=== PATIENT | male | born 1955 | race Caucasian/White ===

== ENCOUNTER 2024-10-15 13:56 | Inpatient (IN) | payer OTHER, MEDICARE ==
[~2024-10-15] VITALS: Ht 170.2 cm; Wt 59.5 kg
[2024-10-15] VITALS (19 sets, daily range): BP systolic 100–147; BP diastolic 48–89; PULSE 68–115; RESP 12–20; TEMP 97.6–99.1; O2SAT 95–98
--- NOTE | 2024-10-15 14:00 | ELECTROCARDIOGRAPH REPORT ---
[facility] Test Date: 2024-10-15 Test Time: 13:58:53 Pat Name: STEVE ROBERTSON Department: EMERGENCY ROOM Room: [place] [address] Gender: M Stepdown Nurse: remberto : 1955 Requested By: CAROL YI Order Number: [id number] Reading MD: Dr. Carol Yi Measurements Intervals [place] Rate: 106 P: 148 [place]: 178 QRS: 65 QRSD: 83 T: 42 QT: 360 QTc: 479 Interpretive Statements Sinus tachycardia with irregular rate Borderline prolonged QT interval Electronically Signed On 10-15-2024 17:54:[address] Carol Yi Please click the below link to view image of tracing.
[2024-10-15] MEDS ORDERED: heparin 25,000 UNIT/250ml bag 250 ML IV PRN (14:05)
--- NOTE | 2024-10-15 14:17 | Physician Documentation ---
History of Present Illness ~ Chief Complaint: ALOC Stated Complaint: SEE CHIEF COMPLAINT Time Seen by MD: 14:15 OK to notify your PCP?: Yes Source: patient, RN/MD, EMS, RN notes reviewed, EMS notes reviewed, old records Mode of Arrival: EMS Exam Limitations: no limitations HPI This patient was recently diagnosed with pneumonia on the left side given antibiotics and apparently returned to the ER once again with worsening symptoms. He has pneumonia once again he was satting at 87% on room air when he arrived. Septic workup was started. During the workup he was found to have an elevated troponin of 0.44 afterwards increased to 1.08. He was started on a heparin drip. In addition to that he was found down CPKs were obtained and were stable at 129. His potassium was low at 3.1 and magnesium 1.5. Kidney functions were reassuring with a BUN of 32 and a creatinine of 0.98. Patient received 3 L of fluids he was hypotensive at 92/54 just prior to discharge with a rapid heart rate at 100. Patient was described as encephalopathic. Just prior to transfer the patient was given vancomycin cefepime and Zithromax. Additionally the patient arrived with a fever of 40 C he is afebrile at time of transfer. Patient's initial heart rate was as high as 160 with rapid AFib with RVR. His hemoglobin is 7.5. WBC is 7.0 patient has multiple cardiac risk factors had a cardiac catheterization two years ago which was reassuring. He was then sent to the ER for sepsis at our facilities. Patient also arrives normotensive opening his eyes and alert Past medical history pulmonary hypertension pneumonia, peripheral neuropathy, osteoarthritis Surgical history negative Social history alcohol in the past more than 30 years beer former smoker quit more than 30 days ago Medication Reconciliation Allergies: Coded Allergies: Penicillins (Verified Allergy, Severe, 10/15/24) acetaminophen (Verified Allergy, Severe, 10/15/24) dicyclomine (Verified Allergy, Severe, 10/15/24) hydrocodone (Verified Allergy, Severe, 10/15/24) morphine (Verified Allergy, Unknown, 10/15/24) Past Medical History Smoking Status: Former smoker Review of Systems ROS Unable to evaluate due to health clinical status Physical Exam Vital Signs: RN Vital Signs have been reviewed: Yes, Temperature: 98.2, Source: Axillary, Heart Rate: 92, Respiratory Rate: 16, BP: 118/56, Pulse Oximetry: 96, Weight: 58.600 Oxygen Flow Rate: 0 Physical Exam General: The patient is thin frail poorly nourished, ill appearing and is in mild acute distress. Skin: [place], warm and dry with no rashes. HEENT: Head was normocephalic and atraumatic. Eyes - pupils equal, round, reactive to light and accommodation. Extraocular movements were intact. Conjunctivae were nonicteric. The mouth and oropharynx with dry mucous membranes. There were no pharyngeal exudates or erythema. Neck: Supple and nontender. There was no jugular venous distention, lymphadenopathy, thyromegaly or masses. Chest: Diffuse rhonchi no wheezes, decreased breath sounds poor air movement. Slightly decreased at the left base. Crackles bilaterally at base Heart: Rate IRregular and rhythmic. S1, S2. No murmurs. Palpation of the chest wall was normal. No rubs or thrills. Abdomen: Soft, nontender and nondistended. Positive bowel sounds. No guarding or rebound. Extremities: No cyanosis, clubbing or edema. The patient moves all extremi ties. Pulses were equal and symmetric. Neurologic: Motor sensory grossly intact Psychologic: The patient was oriented to person, place and time. The patient demonstrated appropriate judgement and insight. Progress Results/Orders Reviewed/noted all lab results: Yes Results/Orders Orders - PRSAAD YI MD Chest,Single View (10/15/24 13:58) Monitor (10/15/24 13:58) Saline Lock (10/15/24 13:58) Oxygen (10/15/24 13:58) Electrocardiogram (10/15/24 13:58) Heparin 10,000 Unit/Ml 1ml (Heparin 10,0 (10/15/24 14:05) Cbc/Diff (10/16/24 03:00) Cbc/Diff (10/17/24 03:00) Cbc/Diff (10/18/24 03:00) Cbc/Diff (10/19/24 03:00) Cbc/Diff (10/20/24 03:00) Amiodarone/D5 360mg/200ml Bag (Nexterone (10/15/24 14:10) Type And Screen (10/15/24 14:26) Lrpc - Active Bleeding (10/15/24 14:26) Completed Orders - PRASAD YI MD Chest,Single View (10/15/24 13:58) Cbc/Diff (10/15/24 13:58) Electrocardiogram (10/15/24 13:58) Hs Troponin I W Calculations (10/15/24 15:58) Hs Troponin I W Calculations (10/15/24 16:58) Heparin 25,000 Unit/250ml Bag (Heparin 2 (10/15/24 14:05) Medications Received in ER Medications (Trade) Dose Ordered Sig/Jacqueline Route PRN Reason Start Time Stop Time Status Last Admin Dose Admin (heparin 10,000 unit/ml 1ml inj) bolus for correct... PRN PRN IV per protocol-CARDIAC 10/15/24 14:05 10/15/24 17:28 2,300 UNITS Amiodarone HCL/ Dextrose 200 ml @ 16.667 mls/ hr Q12H ONCE IV 10/15/24 14:10 10/16/24 02:09 10/15/24 14:23 16.667 MLS/HR Vital Signs 10/15/24 10/15/24 10/15/24 14:00 14:24 14:24 Temp 98.2 Pulse 92 Resp 16 14 B/P (MAP) 118/56 Pulse Ox 96 94 O2 Delivery Room Air* O2 Flow Rate 0 0 FiO2 21 Laboratory Tests Test 10/15/24 14:09 White Blood Count 15.7 H Red Blood Count 2.51 L Hemoglobin 7.1 L Hematocrit 22.0 *L Mean Corpuscular Volume 87.7 Mean Corpuscular Hemoglobin 28.2 Mean Corpuscular Hemoglobin Concent 32.1 L Red Cell Distribution Width 15.7 H Platelet Count 188 Mean Platelet Volume 10.6 H Neutrophils (%) (Auto) 86.9 H Lymphocytes (%) (Auto) 7.3 L Monocytes (%) (Auto) 5.7 Eosinophils (%) (Auto) 0 Basophils (%) (Auto) 0.1 Neutrophils # (Auto) 13.6 H Lymphocytes # (Auto) 1.1 Monocytes # (Auto) 0.9 Eosinophils # (Auto) 0.0 Basophils # (Auto) 0.0 CBC Comment Coagulation Comments Chemistry Comments Re-Evaluation Re-Evaluation : Re-Evaluation: Improved Progress This patient was transferred from [facility] for sepsis. Patient was hypotensive received 3 L of fluids but now is doing much better upon arrival. Patient does not receive or need any pressors at this time. Patient's initial laboratory work showed a leukocytosis of 15.7 and a left shift of 86 consistent with an infectious etiology. Sed rate is 30 C-reactive protein is 8.91 lactic acid ho wever is 1.1 however the patient has also showing significant signs of anemia with a hemoglobin of 7 hematocrit of 22. Due to the signs and symptoms of sepsis with elevated troponins and ischemic cardiomyopathy patient was given a unit of blood to help with his cardiac output and oxygenation. Repeat EKG shows an improved hematocrit of 23.3. Chemistry shows normal chemistry however initial troponin is 851 subsequent was 809 in the 3rd is 774. Procalcitonin later was obtained and is 41.16. Patient was already resuscitated at [facility]. Patient was then admitted to the hospitalist service for further workup and care. 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 Pulse oximetry monitor interpretation shows normal oxygenation 99% room air, normal, my interpretation. EKG/XRAY/CT/US/VASC/MRI Chest X-Ray : Additional Comments [facility] Test Date: 2024-10-15 Test Time: 13:58:53 Pat Name: STEVE ROBERTSON Department: EMERGENCY ROOM Room: [place] [address] Gender: M History Professor: remberto : 1955 Requested By: PRASAD YI Order Number: [id number] Reading MD: Dr. Prasad Yi Measurements Intervals [place] Rate: 106 P: 148 [place]: 178 QRS: 65 QRSD: 83 T: 42 QT: 360 QTc: 479 Interpretive Statements Sinus tachycardia with irregular rate Borderline prolonged QT interval Electronically Signed On 10-15-2024 17:54:[address] Prasad Yi Please click the below link to view image of tracing. Abdominal X-Ray : Additional Comment CHEST RADIOGRAPH Indication: CP Technique: Single frontal view of the chest was obtained COMPARISON: None FINDINGS: Lines and Tubes: None Lungs: Retrocardiac opacity may reflect atelectasis or mild pneumonia. Pleura: No effusion. No pneumothorax. Cardiomediastinal contours: Unremarkable Bones: Unremarkable IMPRESSION: 1. Retrocardiac opacity may reflect atelectasis or mild pneumonia. Heart Score: Heart Score Response (Comments) Value History Slightly Suspicious 0 EKG Repolarization Disturb 1 Age >65 2 Risk Factors 1 or 2 risk factors 1 Troponin >3 x's Normal limit 2 Total 6 Medical Decision Making Additional info obtained from: old records Differential Dx:Considerations: Include: dehydration, DKA, encephalopathy, hypercalcemia, hypoglycemia, hypernatremia, hyponatremia, hypoxia, CVA, mass lesion, subarachnoid hemorrhage, drug overdose, encephalopathy, ETOH intoxication, medication toxicity, infection - sepsis, infection - UTI, renal failure, hyperthermia, hypothermia, other Departure Disposition: LEFT AWOL/ELOPED Admitted to Inpatient Unit: yes, to hospitalist Admission Level of Care: PCU with Tele Impression: Primary Impression: Altered mental status Qualified Codes: R41.0 - Disorientation, unspecified Additional Impressions: Left lower lobe pneumonia Qualified Codes: J18.9 - Pneumonia, unspecified organism Symptomatic anemia Sepsis Qualified Codes: A41.9 - Sepsis, unspecified organism Atrial fibrillation with rapid ventricular response Non-ST elevation myocardial infarction (NSTEMI) Condition: Critical Referrals: NO PRIMARY CARE PROVIDER (PCP) Education Educated: Patient Critical Care Note Total Time (mins): 33 Critical Care Note The very real possibility of a deterioration of this patient's condition required the highest level of my preparedness for sudden, emergent intervention. I provided critical care services, which included medication orders, frequent reevaluations of the patient's condition and response to treatment, ordering and reviewing test results, and discussing the case with various consultants. Excludes time spent performing separately billable procedures. The critical care time associated with the care of the patient was. 33 minutes Signature Scribe Signature: . Attestation: The note accurately reflects work and decisions made by me.Prasad Yi MD 10/15/24 14:40 PRASAD YI MD Oct 15, 2024 14:17
[2024-10-15 14:23] LABS: MEAN PLATELET VOLUME 10.6 FL (7.4-10.4); RED CELL DISTRIBUTION WIDTH 15.7 % (11.5-14.5)
[2024-10-15] MEDS: amiodarone/D5 360MG/200ML BAG 200 ML IV ONE (14:23)
[2024-10-15] MEDS ORDERED: magnesium hydroxide 30ml (MOM) UD suspension PO PRN (14:35)
[2024-10-15] MEDS ORDERED: mag hydrox/Alum hydrox/simeth 30ml oral suspension PO PRN (14:35)
[2024-10-15] MEDS ORDERED: magnesium sulf-water 2g/50mL 50 ML IV PRN (14:35)
[2024-10-15] MEDS ORDERED: ondansetron/PF 4mg/2ml inj IV PRN (14:35)
[2024-10-15] MEDS ORDERED: potassium Cl 20 mEq SR tablet PO PRN ×2 (14:35)
[2024-10-15] MEDS ORDERED: magnesium Cl slow-release 64mg tablet PO PRN (14:35)
[2024-10-15] MEDS ORDERED: magnesium sulf-water 4G/100mL 100 ML IV PRN (14:35)
[2024-10-15] MEDS: MESSAGE TO NURSING IV ONE ×2 (14:55→17:27)
[2024-10-15 15:05] LABS: MEAN PLATELET VOLUME 10.6 FL (7.4-10.4); RED CELL DISTRIBUTION WIDTH 15.9 % (11.5-14.5)
--- NOTE | 2024-10-15 15:09 | RADIOLOGY REPORT ---
CHEST RADIOGRAPH Indication: CP Technique: Single frontal view of the chest was obtained COMPARISON: None FINDINGS: Lines and Tubes: None Lungs: Retrocardiac opacity may reflect atelectasis or mild pneumonia. Pleura: No effusion. No pneumothorax. Cardiomediastinal contours: Unremarkable Bones: Unremarkable IMPRESSION: 1. Retrocardiac opacity may reflect atelectasis or mild pneumonia.
[2024-10-15 15:17] LABS: INR 1.4 INR
[2024-10-15 15:18] LABS: CREATININE 0.95 MG/DL (0.60-1.10); TOTAL CARBON DIOXIDE 19.7 MMOL/L (24-32); eCRCL 62 ML/MIN; eGFR 79 ML/MIN
[2024-10-15 15:25] LABS: PRO BRAIN NATRIURETIC PEPTIDE 8826 PG/ML (0-125)
--- NOTE | 2024-10-15 16:55 | HISTORY AND PHYSICAL-Residence ---
History & Physical Providers to CC Resident Creating Document: FATMATA SOLER, RES ~ History of Present Illness Reason for Admit\Complaint: Altered mental status History of Present Illness 70 years old with past medical history of HTN,Lumbar Radiculopathy presents to ED with Altered level of Consciousness he was refered from [facility] according to her patient Found Crawling in the bathroom an dcould not get up. he had fever and confused also vomited which was white color. He was recently dignosed with pneumonia and finished course of Antibiotics. patient is oriented to person and place but unable to tell time and date.Patient mentioned having Stabing chest pain of which is non radiating and constant and he also report SOB. We contacted His she mentioned he was in normal mentation few weeks before he fell and on the day of fall patient vomited which is non bloody white, patient doesnt have any bleeding disorders or on Blood thinners confirmed by her . patient was having Afib with RVR before coming to ED and was on Amiodarone, now he is heart rate is 94-102. Overall patient is a poor historian Allergies: Coded Allergies: Penicillins (Verified Allergy, Severe, 10/15/24) acetaminophen (Verified Allergy, Severe, 10/15/24) dicyclomine (Verified Allergy, Severe, 10/15/24) hydrocodone (Verified Allergy, Severe, 10/15/24) morphine (Verified Allergy, Unknown, 10/15/24) Past Medical History Past Medical History Hypertension Lumbosacral radiculopathy Past Surgical History Surgical History Comment Cholecystectomy Past Social History Smoking: Non-Smoker Alcohol Use: None Drug Use: None Lives with: Spouse Lives In: Home Occupation: disabled ROS Constitutional: Reports: no symptoms reported Eyes: Reports: no symptoms reported ENT: Reports: no symptoms reported Respiratory: Reports: shortness of breath Cardiovascular: Reports: irregular heart rate Gastrointestinal: Reports: abdominal pain Genitourinary: Reports: no symptoms reported Male Genitalia: Reports: no symptoms reported Neurological: Reports: no symptoms reported Musculoskeletal: Reports: no symptoms reported, back pain Integumentary: Reports: no symptoms reported Allergic/Immunologic: Reports: no symptoms reported Hematologic/Lymphatic: Reports: no symptoms reported Endocrine: Reports: no symptoms reported Psychiatric: Reports: no symptoms reported Unable to obtain: altered mental status Exam Vitals: Vital Signs Date Time Temp Pulse Resp B/P (MAP) Pulse Ox O2 Delivery O2 Flow Rate FiO2 10/15/24 16:07 97.8 78 16 105/53 10/15/24 14:24 94 Room Air* 0 21 General: Patient is Oriented to person and place but not to time and situation, overall patient is a poor historian but trying to answer questions, not agitated HEENT: normocephalic, atraumatic ,dry mucus membranes, pallor is present Neck: no nodules, no jvd, no thyromegalay, no lymphadenopathy Chest: Normal breath sounds, crackles heard b/l, no rochi Cardiovascular: irregular and tachycardic, no rubs or extra heart sounds heard Abdomen: soft, tender,no gaurding, and normal bowel sounds are heard Extremities: no cyanosis, no clubbing Central Nervous System: sleepy and he responded when i call by his name. he able to move all extremities. Skin: warm and dry Diagnostic Data Last Recorded Lab Results: 10/15/24 1456 10/15/24 1456 Diagnostic Data: Laboratory Tests Test 10/15/24 14:56 Prothrombin Time 13.5 SECONDS (9.0-12.0) H INR International Normalized Ratio 1.4 INR APTT (Heparin Protocol) 31 SECONDS (45-60) L Additional Plan 70 years old with past medical history of HTN and radiculopathy is currently evaluated for NSTEMI, Community acquired pneumonia, Atrial fibrillation with RVR, Normocytic anemia Chest pain likely due to NSTEMI Troponins - 851 - 774 (trending down) pending Echo Patient fail to clear swallow test plan: Started metaprolol 5mg IV once heparin drip Pneumonia Possible Hospital acquired bacteria covering gram positive and gram negative Previous CT Shows : Multifocal pneumonia, worst in the lower lung maloney and particularly the left lower lobe and reactive mediastinal and hilar adenopathy Chest xray : Retrocardiac opacity may reflect atelectasis or mild pneumonia ESR : 30 , ProCa.16 , CRP - 8.91 Plan: Blood cultures and sensitivity ordered Started Azithromycin 500mg/250 ml Q24H IV Started Ceftriaxone 1g IV Daily Started Vancomycin 1 gm Q 12 H StartedCefepime 2gm IV Q12 Duonebs PRN Q4H Atrial fibrillation with RVR CHADsVASc Score : 1 EKG: Sinus tachy cardia with irregular rate Plan: amiodarone 360 mg/200 ml q12h once IV current heart rate is 80-90 Started Metaprolol 5g IV once Currenlty on Heparin Drip Severe Normocytic anemia likely due to Lower GI , Upper GI bleeding possible peptic ulcer disease Hb:7.1-7.4, Hct: 22- 23.3, MCV- 88.8 Iron : 12, TIBC: 146, Ferritin :417 Plan: Iron studies ordered Stool occult blood ordered Started Protonix 40mg IV q12h started PRBC transfusion Code Status: full DVT PPX: heparin Line/tube: Peripheral GI prophylaxis: Protonix Disposition: We will continue monitor patient in PCU with telemetry 24 hours Date of Service: Oct 15, 2024 Billing Provider: LUL PURCELL MD Common Visit Codes: 41822-[id number] INP/OBS CARE (HIGH) Secondary Visit Codes: [id number] CARE PLAN 30 MINUTES FATMATA SOLER, BETTYE Oct 15, 2024 16:55 LUL PURCELL MD Oct 18, 2024 07:11
[2024-10-15] MEDS: metoprolol tartrate 1mg/ml inj IV ONE (17:10)
[2024-10-15] MEDS: CefTRIAXone/D5W-Rocephin 1gm 50 ML IV SCH (17:10)
[2024-10-15] MEDS: heparin 10,000 units/1 ML INJ IV PRN (17:28)
[2024-10-15] MEDS: heparin 25,000 UNIT/250ml bag 250 ML IV PRN (17:29)
[2024-10-15] MEDS ORDERED: ipratropium/albuterol 3ml nebule NEB PRN (17:35)
[2024-10-15] MEDS: azithromycin/NS 500mg/250ml 250 ML IV SCH (17:52)
[2024-10-15 17:59] LABS: % IRON SATURATION 8 % (11-46)
[2024-10-15] MEDS ORDERED: docusate sod 100mg capsule PO SCH (20:00)
[2024-10-15] MEDS: K and/or MAG REPLACEMENT MC SCH (20:00)
[2024-10-15] MEDS ORDERED: vancomycin/NS 1 GM ADD-VANTAGE 250 ML IV SCH (21:11)
[2024-10-15] MEDS: CEFEPIME 2gm in D5W 50mL 50 ML IV SCH (23:46)
[2024-10-16] VITALS (20 sets, daily range): BP systolic 117–164; BP diastolic 47–94; PULSE 73–104; RESP 15–30; TEMP 97.3–98.9; O2SAT 94–99
[2024-10-16] MEDS: MESSAGE TO NURSING IV ONE ×2 (00:05→08:24)
[2024-10-16] MEDS: amiodarone/D5 360MG/200ML BAG 200 ML IV SCH (00:08)
[2024-10-16] MEDS: vancomycin/NS 1 GM ADD-VANTAGE 250 ML IV SCH (00:46)
[2024-10-16 06:21] LABS: MEAN PLATELET VOLUME 11.0 FL (7.4-10.4); RED CELL DISTRIBUTION WIDTH 15.8 % (11.5-14.5)
[2024-10-16 06:45] LABS: CREATININE 0.92 MG/DL (0.60-1.10); TOTAL CARBON DIOXIDE 18.7 MMOL/L (24-32); eCRCL 65 ML/MIN; eGFR 82 ML/MIN
[2024-10-16] MEDS: heparin 10,000 units/1 ML INJ IV PRN (08:18)
[2024-10-16] MEDS ORDERED: DIAZ10TA5 PO (09:58)
[2024-10-16] MEDS ORDERED: AMLO2.5T5 PO (09:58)
[2024-10-16] MEDS ORDERED: FAMO20TA8 PO (09:58)
[2024-10-16] MEDS ORDERED: GABA-1405 PO (09:58)
[2024-10-16] MEDS: vancomycin/NS 1 GM ADD-VANTAGE 250 ML X 1 DOSE IV SCH (14:02)
[2024-10-16] MEDS: potassium Cl 40MEQ/1/2NS 520ml 520 ML IV PRN (17:33)
--- NOTE | 2024-10-16 17:35 | PROGRESS NOTE- Residence ---
Progress Note - Resident Providers to CC Resident Creating Document: JUAN SOLER RES ~ Antibiotic Timeout Antibiotic Ordered?: Yes Subjective patient is examined at bed side , patient is more awake today compare to yesterday.able to speak but speech remains bit incoherent, he responded when i call by his name. Objective Vital Signs Date Time Temp Pulse Resp B/P (MAP) Pulse Ox O2 Delivery O2 Flow Rate FiO2 10/16/24 15:00 98.9 84 30 133/75 (94) 94 Room Air 10/16/24 10:17 0 21 Result Diagram: 10/16/24 0542 10/16/24 0542 General: Patient is better today, was able to speak but speech is incoherent, HEENT: normocephalic, atraumatic ,dry mucus membranes, pallor is present Neck: no nodules, no jvd, no thyromegalay, no lymphadenopathy Chest: Normal breath sounds, crackles heard b/l, no rochi Cardiovascular: irregular and tachycardic, no rubs or extra heart sounds heard Abdomen: soft, tender,no gaurding, and normal bowel sounds are heard Extremities: no cyanosis, no clubbing Central Nervous System: sleepy and he responded when i call by his name. he able to move all extremities. Skin: warm and dry Coagulation Studies Laboratory Tests Test 10/15/24 14:56 10/16/24 05:42 Prothrombin Time 13.5 SECONDS (9.0-12.0) H INR International Normalized Ratio 1.4 INR APTT (Heparin Protocol) 38 SECONDS (45-60) L Coagulation Comments Assessment Assessment 70 years old with past medical history of HTN, lumber raduculopathy is currenlty evaluated for Chest pain, Pneumonia , Afib , severe anemia Chest pain likely due to NSTEMI Troponins - 851 - 774 (trending down) pending Echo Patient fail to clear swallow test plan: heparin drip 10/16/2024: HELD amidarone drip Held heparin drip Pneumonia Possible Hospital acquired bacteria covering gram positive and gram negative Previous CT Shows : Multifocal pneumonia, worst in the lower lung maloney and particularly the left lower lobe and reactive mediastinal and hilar adenopathy Chest xray : Retrocardiac opacity may reflect atelectasis or mild pneumonia ESR : 30 , ProCa.16 , CRP - 8.91 Plan: Blood cultures and sensitivity ordered Started Azithromycin 500mg/250 ml Q24H IV Started Ceftriaxone 1g IV Daily Started Vancomycin 1 gm Q 12 H StartedCefepime 2gm IV Q12 Duonebs PRN Q4H 10/16/24: blood cultures show no growth after 1 day we are yet to receive reports from [facility] plan: continue Azithromycin 500mg/250 ml Q24H IV (DAY2) continue Vancomycin 1 gm Q 12 H (DAY 2) continueCefepime 2gm IV Q12 (DAY 2) Duonebs PRN Q4H Atrial fibrillation with RVR CHADsVASc Score : 1 EKG: Sinus tachy cardia with irregular rate Plan: Held amiodarone 360 mg/200 ml q12h once IV Held Heparin Drip Severe Normocytic anemia likely due to Lower GI , Upper GI bleeding possible peptic ulcer disease Hb:7.1-7.4, Hct: 22- 23.3, MCV- 88.8 Iron : 12, TIBC: 146, Ferritin :417 Plan: Iron studies ordered Stool occult blood ordered Started Protonix 40mg IV q12h started PRBC transfusion 10/16/24: Hb: 9.9, HCT: 29.5, IRON: 12, TIBC: 146, % Sat :8, patient had 2 transfusions today now Hb:9.9 pending stool occult test Continue Protonix 40mg IV q12h Transfuse blood if its less than 7 Code Status: full Line/tube: Peripheral GI prophylaxis: Protonix Disposition: We will continue monitor patient in PCU with telemetry 24 hours and we are yet to receive his med records from [facility] Juan soler PGY1 Date of Service: Oct 16, 2024 Billing Provider: LUL PURCELL MD Common Visit Codes: [id number] INP/OBS CARE(HIGH) JUAN SOLER RES Oct 16, 2024 17:35 LUL PURCELL MD Oct 18, 2024 07:11
--- NOTE | 2024-10-16 20:58 | CARDIOLOGY REPORT ---
APPROVED REPORT EXAM: Comprehensive 2D, Doppler, and color-flow Echocardiogram. Patient Location: 3012 A Heart Rate: 80's bpm Rhythm: SINUS Indications CHEST PAIN PBNP 7845 PULMONARY HYPERTENSION PNEUMONIA Fire Inspector: NONE Previous echo: NONE 2D Dimensions RVDd 4.0 cm IVSd 0.8 (0.7-1.1cm) LVDd 5.5 cm PWd 0.9 (0.7-1.1cm) IVSs 1.0 (0.8-1.2cm) LVDs 4.0 (2.5-4.0cm) PWs 1.4 (0.8-1.2cm) LVOT Diameter 1.98 (1.8-2.4cm) LVEF(%) 51.0 (>50%) IVC 22.90 mm FS (%) 26.3 % SV 74.3 ml CO 6.3 L/min M-Mode Dimensions Aortic Root 2.88 (2.2-3.7cm) Aortic Cusp Exc 3.95 (1.5-2.0cm) Aortic Valve AoV Peak Skip. 165.9 cm/s AoV VTI 32.0 cm AO Peak GR. 11.0 mmHg AO Mean GR. 6 mmHg LVOT VTI 23.88 cm LVOT Peak Skip. 137.3 cm/s LORRIE(VTI)/BSA 2.29 cm2/m2 LORRIE (VTI) 2.29 cm2 Mitral Valve MV E Velocity 100.7 cm/s MV Peak Gr. 4 mmHg MV DECEL TIME 200 ms MV A Velocity 73.9 cm/s MV PHT 56 ms E/A Ratio 1.4 MVA (PHT) 3.93 cm2 MV [id number] cm/s Tricuspid Valve TR P. Velocity 365 cm/s RAP ESTIMATE 10 mmHg TR Peak Gr. 53 mmHg RVSP 63 mmHg LEFT VENTRICLE Normal LV size and wall thickness. Overall systolic function is normal. Overall LVEF is around 60-65% . RIGHT VENTRICLE RV is moderately dilated with normal function. PA systolic pressure of 63 mm of mercury. AORTIC VALVE Probable trileaflet AV appears mildly sclerotic without stenosis. No insufficiency. MITRAL VALVE Mild MV annular calcification without stenosis. Mild regurgitation. TRICUSPID VALVE TV appears structurally normal with mild regurgitation. PULMONIC VALVE Normal PV without stenosis, physiologic insufficiency. GREAT VESSELS IVC is dilated and collapses less than 50% with inspiration. PERICARDIUM Normal pericardium. No effusion. Other Information Study Quality: Adequate Conclusion Overall LVEF is around 60-65%. Normal LV size and wall thickness. Overall systolic function is normal. RV is moderately dilated with normal function. PA systolic pressure of 63 mm of mercury. Probable trileaflet AV appears mildly sclerotic without stenosis. No insufficiency. Mild MV annular calcification without stenosis. Mild regurgitation. TV appears structurally normal with mild regurgitation. Normal PV without stenosis, physiologic insufficiency. Normal pericardium. No effusion.
[2024-10-17] VITALS (11 sets, daily range): BP systolic 134–164; BP diastolic 47–81; PULSE 70–88; RESP 16–26; TEMP 96.9–98.7; O2SAT 92–100
[2024-10-17 06:34] LABS: MEAN PLATELET VOLUME 10.2 FL (7.4-10.4); RED CELL DISTRIBUTION WIDTH 16.0 % (11.5-14.5)
[2024-10-17 06:57] LABS: CREATININE 0.88 MG/DL (0.60-1.10); TOTAL CARBON DIOXIDE 19.8 MMOL/L (24-32); eCRCL 69 ML/MIN; eGFR 86 ML/MIN
[2024-10-17] MEDS: VANCOMYCIN LEVEL IV ONE (12:30)
--- NOTE | 2024-10-17 15:53 | PROGRESS NOTE- Residence ---
Progress Note - Resident Providers to CC Resident Creating Document: FATMATA SOLER RES ~ Antibiotic Timeout Antibiotic Ordered?: Yes Subjective patient is examined at bed side, he denies any problems Objective Vital Signs Date Time Temp Pulse Resp B/P (MAP) Pulse Ox O2 Delivery O2 Flow Rate FiO2 10/17/24 11:17 84 18 98 Room Air* 0 21 10/17/24 02:00 97.9 138/47 (77) Result Diagram: 10/17/24 0620 10/17/24 0620 General: Patient looks malnourished ,awake, alert, and denies any symptoms HEENT: normocephalic, atraumatic ,dry mucus membranes, pallor is present Neck: no nodules, no jvd, no thyromegalay, no lymphadenopathy Chest: Normal breath sounds, crackles heard b/l, no rochi Cardiovascular: irregular and tachycardic, no rubs or extra heart sounds heard Abdomen: soft, tender,no gaurding, and normal bowel sounds are heard Extremities: no cyanosis, no clubbing Central Nervous System: he was awake, alert , he able to move all extremities. Skin: warm and dry Coagulation Studies Laboratory Tests Test 10/15/24 14:56 10/16/24 05:42 Prothrombin Time 13.5 SECONDS (9.0-12.0) H INR International Normalized Ratio 1.4 INR APTT (Heparin Protocol) 38 SECONDS (45-60) L Coagulation Comments Assessment Assessment 70 years old with past medical history of HTN, lumber raduculopathy is currenlty evaluated for Chest pain, Pneumonia , Afib , severe anemia Plan Plan Assessment 70 years old with past history of HTN and lumosacral raduculopathy is Currently evaluated for ALOC Altered [facility] due to Metabolic encephalopathy, WBC-9.1 Hb-9, Hct :29 BUN : 19, Creatinine: 0.88, Na:147. K-3.3, SpO2 : 98 Blood culture : No growth after 1 day Plan : Ordered Urine analysis Pneumonia Possible Hospital acquired bacteria covering gram positive and gram negative Previous CT Shows : Multifocal pneumonia, worst in the lower lung maloney and particularly the left lower lobe and reactive mediastinal and hilar adenopathy Chest xray : Retrocardiac opacity may reflect atelectasis or mild pneumonia ESR : 30 , ProCa.16 , CRP - 8.91 Plan: Blood cultures shows no organism after 1 day and pending sensitivity Continue Azithromycin 500mg/250 ml Q24H IV day 3 Continue Vancomycin 1 gm Q 12 H day 3 Continue Cefepime 2gm IV Q12 day 3 Continue Duonebs PRN Q4H Chest pain likely Type 2 FL due to Atrial fibrillation with RVR likley due to Hyperthyrodism Troponins - 851 - 774 (trending down) CHADsVASc Score : 1 EKG: Sinus tachy cardia with irregular rate Echo : LVEF is around 60-65%, RVSP :63 mmHg plan: Continue monitor patient Blood pressure and Heart rate T3 ordered Ordered- AntiTPO antibodies, Antithyroglobin antibody, thyrotropin receptor antibody Plan: T3 ordered Ordered- AntiTPO antibodies, Antithyroglobin antibody, thyrotropin receptor antibody 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, graves TSH- <0.03 Free T4- 3.75 Plan: USG head and neck ordered T3 Ordered- AntiTPO antibodies, Antithyroglobin antibody, thyrotropin receptor antibody Normocytic anemia likely due to Anemia of chronic disease or GI bleed Hb: 9.9 improving (from 7.1) Hct: 29.4, MCV: 87.4 Pending stool occult blood Plan Continue monitor CBC /CMP transfuse blood if its less than 7 and patient presents with severe symptoms Code Status: full Line/tube: Peripheral GI prophylaxis: Protonix Nutrition: Regular PT: Yes Prognosis: Guarded Disposition : Patient will be continue to monitor in PCU under telemetry fatmata soler [email or web address] Date of Service: Oct 17, 2024 Billing Provider: LUL PURCELL MD Common Visit Codes: [id number] INP/OBS CARE(HIGH) FATMATA SOLER, BETTYE Oct 17, 2024 15:53 LUL PURCELL MD Oct 18, 2024 07:12
--- NOTE | 2024-10-17 16:43 | RADIOLOGY REPORT ---
CLINICAL HISTORY: ABN LABS TECHNIQUE: Ultrasound exam of the thyroid gland was performed using grayscale and color doppler imagi ng. COMPARISON: None FINDINGS: The right lobe of the thyroid gland is heterogeneous in echogenicity and measures 2.6 X 1.9 X 1.3 cm. There is a 4 mm echogenic nodule inferiorly. There is a 1.2 cm isoechoic nodule superiorly. The left lobe of the thyroid gland is heterogeneous in echogenicity and measures 3.9 X 3.0 X 1.5 cm. There is a questionable 1.2 cm isoechoic nodule superiorly. The isthmus measures .4 cm. IMPRESSION: Thyroid nodules measuring up to 1.2 cm. 1 year ultrasound follow-up suggested.
[2024-10-18] VITALS (9 sets, daily range): BP systolic 98–160; BP diastolic 56–86; PULSE 60–75; RESP 16–25; TEMP 97.7–98.8; O2SAT 95–99
[2024-10-18] MEDS ORDERED: VANCOMYCIN/WATER FOR INJ (PEG) 750MG/150 ML IVPB IV SCH (01:00)
[2024-10-18] MEDS: vancomycin inj. 750 MG in normal saline 250ml IV soln 250 ML IV SCH (02:17)
[2024-10-18 03:57] LABS: OCCULT BLOOD STOOL NEGATIVE (Neg)
[2024-10-18 06:43] LABS: MEAN PLATELET VOLUME 10.8 FL (7.4-10.4); RED CELL DISTRIBUTION WIDTH 16.3 % (11.5-14.5)
[2024-10-18 06:54] LABS: CREATININE 0.75 MG/DL (0.60-1.10); TOTAL CARBON DIOXIDE 20.9 MMOL/L (24-32); eCRCL 80 ML/MIN; eGFR > 90 ML/MIN
[2024-10-18 09:26] LABS: PLATELET ESTIMATE NORMAL
[2024-10-18 09:27] LABS: LARGE PLATELETS FEW
[2024-10-18 14:47] LABS: C DIFF ANTIGEN NEGATIVE (NEGATIVE); C DIFF SPECIMEN=DIARRHEA? ACCEPTABLE; C DIFFICILE TOXINS A&B NEGATIVE (Neg)
--- NOTE | 2024-10-18 17:11 | PROGRESS NOTE- Residence ---
Progress Note - Resident Providers to CC Resident Creating Document: FATMATA SOLER RES ~ Antibiotic Timeout Antibiotic Ordered?: Yes Subjective patient is examined at bed side, he denies any problems Objective Vital Signs Date Time Temp Pulse Resp B/P (MAP) Pulse Ox O2 Delivery O2 Flow Rate FiO2 10/18/24 10:00 98.3 73 21 160/62 (94) 99 Room Air 10/17/24 19:14 0 21 Result Diagram: 10/18/24 0614 10/18/24 0614 General: Patient looks malnourished ,awake, alert, and denies any symptoms HEENT: normocephalic, atraumatic ,dry mucus membranes, pallor is present Neck: no nodules, no jvd, no thyromegalay, no lymphadenopathy Chest: Normal breath sounds, crackles heard b/l, no rochi Cardiovascular: irregular and tachycardic, no rubs or extra heart sounds heard Abdomen: soft, tender,no gaurding, and normal bowel sounds are heard Extremities: no cyanosis, no clubbing Central Nervous System: he was awake, alert , he able to move all extremities. Skin: warm and dry Coagulation Studies Laboratory Tests Test 10/15/24 14:56 10/16/24 05:42 Prothrombin Time 13.5 SECONDS (9.0-12.0) H INR International Normalized Ratio 1.4 INR APTT (Heparin Protocol) 38 SECONDS (45-60) L Coagulation Comments Assessment Assessment 70 years old with past medical history of HTN, lumber raduculopathy is currenlty evaluated for Chest pain, Pneumonia , Afib , severe anemia Plan Plan Assessment 70 years old with past history of HTN and lumosacral raduculopathy is Currently evaluated for ALOC Altered [facility] due to Metabolic encephalopathy, WBC-9.1 Hb-9, Hct :29 BUN : 19, Creatinine: 0.88, Na:147. K-3.3, SpO2 : 98 Blood culture : No growth after 1 day Plan : Ordered Urine analysis Pneumonia Possible Hospital acquired bacteria covering gram positive and gram negative Previous CT Shows : Multifocal pneumonia, worst in the lower lung maloney and particularly the left lower lobe and reactive mediastinal and hilar adenopathy Chest xray : Retrocardiac opacity may reflect atelectasis or mild pneumonia ESR : 30 , ProCa.16 , CRP - 8.91 Plan: Blood cultures shows no organism after 1 day and pending sensitivity Held Azithromycin 500mg/250 ml Q24H IV day 3 Continue Vancomycin 1 gm Q 12 H day 4 Continue Cefepime 2gm IV Q12 day 4 Continue Duonebs PRN Q4H Chest pain likely Type 2 [place] due to Atrial fibrillation with RVR likley due to Hyperthyrodism Troponins - 851 - 774 (trending down) CHADsVASc Score : 1 EKG: Sinus tachy cardia with irregular rate Echo : LVEF is around 60-65%, RVSP :63 mmHg plan: Continue monitor patient Blood pressure and Heart rate T3 ordered Ordered- AntiTPO antibodies, Antithyroglobin antibody, thyrotropin receptor antibody Plan: T3 ordered Ordered- AntiTPO antibodies, Antithyroglobin antibody, thyrotropin receptor antibody 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 1 year ultrasound follow-up suggested Contacted retail zone specialist for consult unfortunately the didnot accepted it Normocytic anemia likely due to Anemia of chronic disease Hb: 9.9 improving (from 7.1) Hct: 29.4, MCV: 87.4 stool occult blood negative Plan Continue monitor CBC /CMP transfuse blood if its less than 7 and patient presents with severe symptoms Code Status: full Line/tube: Peripheral GI prophylaxis: Protonix Nutrition: Regular PT: Yes Prognosis: Guarded Disposition : Patient will be continue to monitor in PCU under telemetry , PT recommended Home with Assist fatmata soler [email or web address] Date of Service: Oct 18, 2024 Billing Provider: LUL PURCELL MD Common Visit Codes: [id number] INP/OBS CARE(HIGH) FATMATA SOLER, BETTYE Oct 18, 2024 17:11 LUL PURCELL MD Oct 19, 2024 07:43
[2024-10-18] MEDS: loperamide 2mg capsule PO ONE (22:55)
[2024-10-19 02:00] VITALS: BP 128/59; PULSE 72; RESP 20; TEMP 97.3; O2SAT 95
[2024-10-19 07:03] LABS: MEAN PLATELET VOLUME 10.4 FL (7.4-10.4); RED CELL DISTRIBUTION WIDTH 15.7 % (11.5-14.5)
[2024-10-19 07:19] LABS: CREATININE 0.70 MG/DL (0.60-1.10); TOTAL CARBON DIOXIDE 19.0 MMOL/L (24-32); eCRCL 86 ML/MIN; eGFR > 90 ML/MIN
[2024-10-19 07:30] VITALS: BP 144/60; PULSE 60; RESP 13; TEMP 98.9; O2SAT 99
[2024-10-19 08:52] VITALS: PULSE 88; RESP 18; O2SAT 99
[2024-10-19] MEDS: pantoprazole 40mg Tablet.DR PO SCH (08:59)
[2024-10-19 11:00] VITALS: BP 157/57; PULSE 71; RESP 25; TEMP 97.3; O2SAT 97
[2024-10-19] MEDS ORDERED: LACT1CAP26 PO (11:30)
[2024-10-19] MEDS ORDERED: LEVO-65 PO (11:30)
[2024-10-19] MEDS ORDERED: APIX5TAB3 PO (11:30)
[2024-10-19] MEDS: VANCOMYCIN LEVEL IV ONE (13:25)
--- NOTE | 2024-10-19 23:05 | DISCHARGE SUMMARY-Residence ---
Discharge Summary Providers to CC Resident Creating Document: FATMATA SOLER RES ~ Discharge Summary Admission Diagnosis: Atrail Fibrillation with RVR Hospital Course DATE OF ADMISSION: 10/15/24 DATE OF DISCHARGE: 10/19/24 Discharge Diagnosis\Comment: community acquired pneumonia farshad due to grampostive and gram negative hyperthyrodism afib with Rvr Operations\Procedures: none Consultants: none Complications: none Condition on DC: Stable for transfer Discharge Summary: H/P: 70 years old with past medical history of HTN,Lumbar Radiculopathy presents to ED with Altered level of Consciousness he was refered from [facility] according to her patient Found Crawling in the bathroom an dcould not get up. he had fever and confused also vomited which was white color. He was recently dignosed with pneumonia and finished course of Antibiotics. patient is oriented to person and place but unable to tell time and date.Patient mentioned having Stabing chest pain of which is non radiating and constant and he also report SOB. We contacted His she mentioned he was in normal mentation few weeks before he fell and on the day of fall patient vomited which is non bloody white, patient doesnt have any bleeding disorders or on Blood thinners confirmed by her . patient was having Afib with RVR before coming to ED and was on Amiodarone, now he is heart rate is 94-102. Overall patient is a poor historian hospital course: patient was admitted with lightheadness the we started treating for Pneumonia Possible Hospital acquired bacteria covering gram positive and gram negative with labs previousCT Shows : Multifocal pneumonia, worst in the lower lung fiel ds and particularly the left lower lobe and reactive mediastinal and hilar adenopathy Chest xray : Retrocardiac opacity may reflect atelectasis or mild pneumonia ESR : 30 , ProCa.16 , CRP - 8.91 with Blood cultures and sensitivity ordered Started Azithromycin 500mg/250 ml Q24H IV ,Started Ceftriaxone 1g IV Daily ,Started Vancomycin 1 gm Q 12 H, StartedCefepime 2gm IV Q12, Duonebs PRN Q4H and started amiodarone 360 mg/200 ml q12h once IV current heart rate is 80-90 Started Metaprolol 5g IV once Currenlty on Heparin Drip for his afib. Severe Normocytic anemia likely due to Lower GI , Upper GI bleeding possible peptic ulcer disease Hb:7.1-7.4, Hct: 22- 23.3, MCV- 88.8 Iron : 12, TIBC: 146, Ferritin :417, Iron studies ordered ,Stool occult blood ordered ,Started Protonix 40mg IV q12h,started PRBC transfusion. on next day blood cultures show no growth after 1 day we are yet to receive reports from [facility] continued Azithromycin 500mg/250 ml Q24H IV (DAY2), continued Vancomycin 1 gm Q 12 H (DAY 2), continued Cefepime 2gm IV Q12 (DAY 2), Hb: 9.9, HCT: 29.5,IRON: 12, TIBC: 146, % Sat :8, patient had 2 transfusions till this day and his stool occult test Continued Protonix 40mg IV q12h and T3/t4/TSH showed Hyperthyrodism OrderedAntiTPO antibodies, Antithyroglobin antibody, thyrotropin receptor antibody next day and patient condition got stabilised and his daughter agreed for rehab Physical examination Patient looks malnourished ,awake, alert, and denies any symptoms HEENT: normocephalic, atraumatic ,dry mucus membranes, pallor is present Neck: no nodules, no jvd, no thyromegalay, no lymphadenopathy Chest: Normal breath sounds, crackles heard b/l, no rochi Cardiovascular: irregular and tachycardic, no rubs or extra heart sounds heard Abdomen: soft, tender,no gaurding, and normal bowel sounds are heard Extremities: no cyanosis, no clubbing Central Nervous System: he was awake, alert , he able to move all extremities. Skin: warm and dry Vital Signs Date Time Temp Pulse Resp B/P (MAP) Pulse Ox O2 Delivery O2 Flow Rate FiO2 10/19/24 11:00 Room Air 10/19/24 11:00 97.3 71 25 157/57 (90) 97 10/19/24 08:52 0 21 Laboratory Tests Test 10/19/24 06:17 10/19/24 06:27 10/19/24 12:31 White Blood Count 7.4 X10'3 Red Blood Count 3.33 X10'6 Hemoglobin 9.9 g/dl Hematocrit 29.5 % Mean Corpuscular Volume 88.5 FL Mean Corpuscular Hemoglobin 29.8 PG Mean Corpuscular Hemoglobin Concent 33.7 g/dL Red Cell Distribution Width 15.7 % Platelet Count 187 X10'3 Mean Platelet Volume 10.4 FL Neutrophils (%) (Auto) 63.2 % Lymphocytes (%) (Auto) 25.7 % Monocytes (%) (Auto) 8.8 % Eosinophils (%) (Auto) 1.8 % Basophils (%) (Auto) 0.5 % Neutrophils # (Auto) 4.7 X10'3 Lymphocytes # (Auto) 1.9 X10'3 Monocytes # (Auto) 0.7 X10'3 Eosinophils # (Auto) 0.1 X10'3 Basophils # (Auto) 0.0 X10'3 CBC Comment Sodium Level 144 MMOL/L Potassium Level 3.3 MMOL/L Chloride Level 116 MMOL/L Carbon Dioxide Level 19.0 MMOL/L Anion Gap 9 Blood Urea Nitrogen 12 MG/DL Creatinine 0.70 MG/DL Estimated GFR/1.73 m2 > 90 ML/MIN BUN/Creatinine Ratio 17.1 Glucose Level 99 MG/DL Calcium Level 8.4 MG/DL Magnesium Level 1.5 MG/DL Total Bilirubin 0.7 MG/DL Aspartate Amino Transf (AST/SGOT) 16 U/L Alanine Aminotransferase (ALT/SGPT) 20 U/L Alkaline Phosphatase 156 IU/L Total Protein 5.0 G/DL Albumin 1.9 G/DL Globulin 3.1 G/DL Albumin/Globulin Ratio 0.6 Chemistry Comments Vancomycin Level Trough 24.3 ug/mL Discharge : Instructions New Medications: Apixaban (Eliquis) 5 Mg Tablet Lactobacillus Rhamnosus (Culturelle) 10 Billion Cell Capsule Levofloxacin 500 Mg Tablet Call 911 or Come to ED if severe shortness or breath and chest pain develops *Problems/Diagnosis: (1) Pneumonia Status: Acute (2) Metabolic encephalopathy Status: Chronic (3) Type 2 TN (myocardial infarction) Status: Resolved (4) Hyperthyroidism Status: Chronic (5) Atrial fibrillation Status: Acute Total Time Spent on D/C: Up to 30 Minutes Date of Service: Oct 19, 2024 Billing Provider: LUL PURCELL MD Common Visit Codes: [id number] DISCH DAY >30min Problem Qualifiers (1) Pneumonia: Pneumonia type: due to methicillin-resistant Staphylococcus aureus (MRSA) FATMATA SOLER, RES Oct 19, 2024 23:05 LUL PURCELL MD Oct 21, 2024 08:33
[2024-10-20] MEDS ORDERED: VANCOMYCIN 500MG/WATER FOR INJ (PEG) PREMIX 100 ML IV SCH (01:00)
[2024-10-20 05:17] LABS: THYROID PEROXIDASE AB 71.0 IU/mL (0-34)
[2024-10-20 08:14] LABS: THYROTROPIN RECEPTOR ANTIBODY 12.8 IU/L (0.00-1.75)
[2024-10-21] MEDS ORDERED: VANCOMYCIN LEVEL IV ONE (12:30)
== END 2024-10-19 15:22 | disposition home health service (06) | DRG 871 ==
LOC: ER 13:57 → EDBD 14:32 → ED HOLD 14:32 → PCU 3S 16:30 → ED HOLD 16:35 → PCU 3S 16:45
PROVIDERS: ADMIT Internal Medicine; ATTEND Internal Medicine
PROC: 30233N1 Transfusion of Nonautologous Red Blood Cells into Peripheral Vein, Percutaneous Approach (ICD-10-PCS; principal; 2024-10-15)
DX: A41.9 Sepsis, unspecified organism (principal); G93.41 Metabolic encephalopathy; J15.69 Pneumonia due to other Gram-negative bacteria; I21.A1 Myocardial infarction type 2; J15.9 Unspecified bacterial pneumonia; I48.20 Chronic atrial fibrillation, unspecified; I48.91 Unspecified atrial fibrillation; D64.9 Anemia, unspecified; Z87.891 Personal history of nicotine dependence; Z88.0 Allergy status to penicillin; Z88.5 Allergy status to narcotic agent; Z88.8 Allergy status to other drugs, medicaments and biological substances; Z90.49 Acquired absence of other specified parts of digestive tract
CPT/HCPCS: 36415; 36430; 71045; 76536; 80048; 80053; 80076; 80202; 82272; 82728; 82948; 83520; 83540; 83550; 83605; 83735; 83880; 84145; 84439; 84443; 84480; 84484; 85008; 85025; 85610; 85651; 85730; 86140; 86376; 86885; 86900; 86901; 86920; 87040; 87081; 87324; 87449; 92508; 92616; 93005; 93306; 94760; 96365; 96367; 96375; 97116; 97161; 97530; 99291; A6213; A6250; G0378; J0282; J0456; J0692; J0696; J1644; J2470; J3373; J3480; J3490; J7040; J7050; P9016